=== PATIENT | male | born 1990 | race Caucasian/White ===

== ENCOUNTER 2021-01-20 17:13 | Emergency (ER) | payer MEDICAID ==
[~2021-01-20] VITALS: Ht 177.8 cm; Wt 65.8 kg
[2021-01-20 17:21] VITALS: BP 153/97
[2021-01-20] MEDS ORDERED: IBUP-1955 PO (18:05)
== END 2021-01-20 19:09 | disposition home or self-care (01) ==
LOC: ER 17:16
DX: S82.62XA Displaced fracture of lateral malleolus of left fibula, initial encounter for closed fracture (principal); Z79.899 Other long term (current) drug therapy; Z60.2 Problems related to living alone; W18.39XA Other fall on same level, initial encounter; Y93.89 Activity, other specified; Y92.89 Other specified places as the place of occurrence of the external cause; Y99.8 Other external cause status
CPT/HCPCS: 73610-TC